=== PATIENT | male | born 1980 | race Caucasian/White ===

== ENCOUNTER 2017-07-17 12:03 | Emergency (ER) | payer BC, OTHER ==
[~2017-07-17] VITALS: Ht 190.5 cm; Wt 105.6 kg
[2017-07-17] MEDS ORDERED: LORazepam 1MG TABLET ONE (12:47)
[2017-07-17] MEDS ORDERED: SODIUM CHLORIDE FLUSH 10ML SYR IVF ONE (13:00)
[2017-07-17] MEDS ORDERED: LORazepam 1MG TABLET PO ONE (13:00)
[2017-07-17] MEDS ORDERED: SODIUM CHLORIDE 0.9% 1,000ML IVBOLUS ONE (13:00)
[2017-07-17 13:16] LABS: HEMATOCRIT 52.6 % (39.2-51.8); HEMOGLOBIN 18.3 g/dL (13.7-18.0); WHITE BLOOD COUNT 6.2 x10^3/uL (3.4-10)
[2017-07-17 13:31] LABS: BLOOD UREA NITROGEN 18 mg/dL (7-18)
[2017-07-17 13:37] LABS: ASPARTATE AMINO TRANSFERASE 26 U/L (15-37)
[2017-07-17 13:39] LABS: IS PT STATUS REG ER OR PRE ER? YES
[2017-07-17 14:33] VITALS: BP 153/96
== END 2017-07-17 14:35 | disposition home or self-care (01) ==
LOC: ED 14:29
DX: R55 Syncope and collapse (principal)
CPT/HCPCS: 36415; 71010; 80053; 84484; 85025; 93005; 96360; 99285; J7030